=== PATIENT | male | born 2000 | race Caucasian/White ===

== ENCOUNTER 2022-04-04 10:31 | Emergency (ER) | payer MEDICAID ==
[~2022-04-04] VITALS: Ht 185.4 cm; Wt 67.6 kg
[2022-04-04 10:43] VITALS: BP 128/96
--- NOTE | 2022-04-04 10:43 | NUR ---
MED REFILL FOR ALBUTEROL INHALER
[2022-04-04] MEDS ORDERED: PRED50TA PO (11:06)
[2022-04-04] MEDS ORDERED: ALBU18HF2 INH (11:06)
--- NOTE | 2022-04-04 11:24 | NUR ---
Patient discharged to home in stable condition. Written and verbal after care instructions given. Patient verbalizes understanding of instruction.
== END 2022-04-04 11:28 | disposition home or self-care (01) ==
LOC: ER 10:39
DX: J45.901 Unspecified asthma with (acute) exacerbation (principal); Z60.2 Problems related to living alone; Z79.899 Other long term (current) drug therapy